=== PATIENT | female | born 1995 | race African-American/Black ===

== ENCOUNTER 2016-07-05 15:02 | Emergency (ER) | payer BC ==
[~2016-07-05] VITALS: Ht 167.6 cm; Wt 82.6 kg
[2016-07-05 15:07] VITALS: TEMP 37; Ht 167.6 cm; Wt 82.6 kg
[2016-07-05] MEDS ORDERED: IBUP-1050 PO (15:13)
[2016-07-05] MEDS ORDERED: PHEN1MIS PO (15:15)
[2016-07-05] MEDS ORDERED: XYLOCAINE 1%/SOD BICARB 20 ML VIAL INFIL ONE (15:30)
--- NOTE | 2016-07-05 16:01 | EMERGENCY ROOM VISIT NOTE ---
ED Visit Note First contact with patient: 15:18 CHIEF COMPLAINT: Torn left nipple piercing HISTORY OF PRESENT ILLNESS: Patient is a healthy 20-year-old female who presents emergency department for evaluation of a left nipple laceration. She was walking in her apartment without a shirt on and her nipple piercing got caught on the door, and partially to 4. She notes some bleeding that was controlled with pressure and has minimal pain. Injury occurred about 40 minutes prior to arrival. She reports that she has had a nipple piercing for about 4 years. REVIEW OF SYSTEMS: Review of systems as per HPI. All other systems reviewed were negative. At least 6 systems reviewed. PMH: The patient is healthy; there is no significant medical or surgical history. Her tetanus is up-to-date. SOCIAL HISTORY: Patient is a college in from [place] who lives locally with roommates. She does not smoke. PHYSICAL EXAM: Vital Signs: Reviewed Nurse's notes. Examination of the left nipple show a horizontal bar piercing. The medial portion of the nipple is lacerated anterior to the piercing track, extending to the midline of the nipple. Total repair laceration length is 0.5 cm. There is scant bleeding. EMERGENCY DEPARTMENT COURSE: The patient's nipple piercing was removed. Using sterile technique, saline and Betadine cleansing, and 1% lidocaine anesthesia, the laceration was repaired with 4, 6-0 PDS sutures. There was good reapproximation of the nipple with good cosmetic outcome, and the piercing was still patent deep to the sutures. Wound care measures were discussed. Patient was advised that the sutures were absorbable, however she should still remained from wearing the piercing for several months to allow the nipple tissue to stabilize. Differential diagnoses include laceration, foreign body, infection, among others. Current/Historical Medications Scheduled Ibuprofen (Advil), 400 MG PO DAILY Aksvwkauzkykc-Hwabxhxcbk-Ppime (Vicks Dayquil/Nyquil Cold), 1 CUP PO DAILY Allergies Coded Allergies: No Known Allergies (Unverified , 07/05/16) Vital Signs Date Time Temp Pulse Resp B/P Pulse Ox O2 Delivery O2 Flow Rate FiO2 07/05/16 15:07 37.0 78 18 145/73 96 Room Air Medications Administered Medications (Trade) Dose Ordered Sig/Jonah Route Start Time Stop Time Status Last Admin Dose Admin Lidocaine HCl (Buffered Lidocaine 1% Inj) 20 ml ONE ONCE INFIL 07/05/16 15:30 07/05/16 15:31 DC 07/05/16 15:30 20 ML Departure Information Impression Primary Impression: Laceration of left breast Referrals No Doctor, Assigned (PCP) Patient Instructions My [facility] Additional Instructions Keep wound clean and dry. May clean gently with mild soap and water. Use an antibiotic ointment for 3-4 days, then let wound dry. Sutures are absorbable and will fall out on their own over the next 2-3 weeks. Avoid reinserting the piercing for 3-4 months to allow tissue to completely heal. Return for any signs of infection (increasing redness, swelling, drainage). Ice and elevate for swelling and pain. Ibuprofen 600 mg and Tylenol 1000 mg every 6 hrs for pain.
[2016-07-05 16:05] VITALS: BP 119/64; PULSE 76; O2SAT 99
== END 2016-07-05 16:05 | disposition home or self-care (01) ==
LOC: C.EDB 15:04 → C.EDD 16:05
DX: S21.012A Laceration without foreign body of left breast, initial encounter (principal); W23.0XXA Caught, crushed, jammed, or pinched between moving objects, initial encounter